=== PATIENT | male | born 1935 | race Hispanic/Latino ===

== ENCOUNTER 2018-10-10 00:50 | Emergency (ER) | payer MEDICARE | END 2018-10-10 01:37 | disposition home or self-care (01) | LOC: EDH 00:50 | DX: I10 Essential (primary) hypertension (principal); E78.5 Hyperlipidemia, unspecified; Z79.899 Other long term (current) drug therapy; Z95.0 Presence of cardiac pacemaker | CPT/HCPCS: 99281 ==

== ENCOUNTER 2018-11-07 06:43 | Day surgery (SDC) | payer MEDICARE ==
[2018-11-05 16:33] LABS: BASOPHILS % (AUTO) 1.1 % (0.0-5.0); EOSINOPHILS % (AUTO) 4.5 % (0.0-8.0); HEMATOCRIT 41.5 % (42-54); MEAN CORPUSCULAR HEMOGLOBIN 30.2 pg (27.0-33.0); MEAN CORPUSCULAR HGB CONC 32.8 g/dL (32.0-36.0); MEAN CORPUSCULAR VOLUME 92.1 fL (79-99); MONOCYTES % (AUTO) 8.7 % (3.0-13.0); NEUTROPHILS % (AUTO) 45.7 % (40.0-77.0); NUCLEATED RED BLOOD CELLS 0.1 % (0.0-0.19); PLATELET COUNT (AUTO) 159 K/uL (130-400); RED BLOOD CELL COUNT(AUTO) 4.51 MIL/uL (4.50-6.20); RED CELL DISTRIBUTION WIDTH 13.1 % (11.0-15.5); WHITE BLOOD COUNT (AUTO) 5.4 K/uL (4.8-10.8)
[2018-11-05 16:37] VITALS: BP 157/63
[2018-11-05 16:41] LABS: CREATININE 1.4 mg/dL (0.5-1.5); POTASSIUM 4.3 mmol/L (3.5-5.1)
[2018-11-07] VITALS (18 sets, daily range): BP systolic 125–153; BP diastolic 52–74
[~2018-11-07] VITALS: Ht 165.1 cm; Wt 68.0 kg
[2018-11-07] MEDS: CEFTRIAXONE SODIUM 1 GM IVP SCH ×2 (06:00→09:00)
[~2018-11-07 06:43] MED LIST: AMLO2.5T3 PO; ASPI-555 PO; METO-409 PO; OMEP20CA10 PO
[2018-11-07] MEDS ORDERED: LACTATED RINGERS 1000ML 1,000 ML IV ONE (07:17)
[2018-11-07] MEDS ORDERED: LIDOCAINE PF 2% 5ML ABBOJECT ONE (08:52)
[2018-11-07] MEDS ORDERED: PROPOFOL 10 MG/ML 20ML VIAL IV ONE (08:53)
[2018-11-07] MEDS ORDERED: FENTANYL CITRATE PF 50 MCG/1 ML 2ML VIAL ONE (08:53)
[2018-11-07] MEDS ORDERED: ROCURONIUM 10MG/1ML SYR 10 MG/ML ML ONE (09:11)
[2018-11-07] MEDS ORDERED: EPHEDRINE SULFATE 50 MG/ML AMPULE ONE (09:11)
[2018-11-07] MEDS ORDERED: NEOSTIGMINE 5MG/5ML SYR IV ONE (09:37)
[2018-11-07] MEDS ORDERED: GLYCOPYRROLATE 1 MG/5 ML SYRINGE ONE (09:37)
[2018-11-07] MEDS ORDERED: MEPERIDINE-PF 25 MG/ML SYG ONE (10:02)
[2018-11-07] MEDS ORDERED: OPIUM/BELLADONNA ALKALOIDS 1 EACH SUPP.RECT RC ONE (10:06)
== END 2018-11-07 12:23 | disposition home or self-care (01) ==
LOC: DAH 06:43
PROVIDERS: ATTEND Urology
DX: N40.1 Benign prostatic hyperplasia with lower urinary tract symptoms (principal); R35.0 Frequency of micturition; R39.15 Urgency of urination; I10 Essential (primary) hypertension; Z79.899 Other long term (current) drug therapy; Z98.890 Other specified postprocedural states; R39.14 Feeling of incomplete bladder emptying; Z82.49 Family history of ischemic heart disease and other diseases of the circulatory system; I47.1 Supraventricular tachycardia; Z95.0 Presence of cardiac pacemaker; E78.5 Hyperlipidemia, unspecified; K21.9 Gastro-esophageal reflux disease without esophagitis; I25.10 Atherosclerotic heart disease of native coronary artery without angina pectoris
CPT/HCPCS: 36415; 52648; 80048; 85025; 88305; 93005; A4218; A4354; A4358; A4510; A4600; J0696; J2001; J2175; J2704; J2710; J3010; J3490 ×2; J7120 ×2

== ENCOUNTER 2018-11-08 09:25 | Emergency (ER) | payer MEDICARE ==
[2018-11-08 10:17] LABS: APPEARANCE,URINE CLOUDY (CLEAR); BILIRUBIN,URINE SMALL (NEGATIVE); GLUCOSE, URINE (UA) 100 mg/dL (NEGATIVE); KETONES,URINE NEGATIVE (NEGATIVE); LEUKOCYTE ESTERASE ,URINE TRACE (NEGATIVE); NITRATE,URINE POSITIVE (NEGATIVE); OCCULT BLOOD,URINE LARGE (NEGATIVE); PH,URINE 5.5 (5.0-8.0); PROTEIN,URINE >=300 (NEGATIVE)
[2018-11-08 10:25] LABS: COLOR,URINE ORANGE (YELLOW)
[2018-11-08 10:28] LABS: AMORPHOUS SEDIMENT,UR Few /LPF (None Seen); BACTERIA,URINE Moderate /HPF (None Seen); SQUAMOUS EPITHELIAL CELL,UR Few /HPF (0-2)
== END 2018-11-08 11:48 | disposition home or self-care (01) ==
LOC: EDH 09:25
DX: T83.098A Other mechanical complication of other urinary catheter, initial encounter (principal); R31.9 Hematuria, unspecified; E78.5 Hyperlipidemia, unspecified; I10 Essential (primary) hypertension; Z98.890 Other specified postprocedural states
CPT/HCPCS: 76857; 81001; 87088

== ENCOUNTER 2019-04-30 05:45 | Day surgery (SDC) | payer MEDICARE ==
[2019-04-28 10:23] LABS: BASOPHILS % (AUTO) 1.2 % (0.0-5.0); EOSINOPHILS % (AUTO) 4.9 % (0.0-8.0); LYMPHOCYTES % (AUTO) 40.7 % (21.0-51.0); MEAN CORPUSCULAR HEMOGLOBIN 30.6 pg (27.0-33.0); MEAN CORPUSCULAR HGB CONC 33.1 g/dL (32.0-36.0); MEAN CORPUSCULAR VOLUME 92.4 fL (79-99); NEUTROPHILS % (AUTO) 43.2 % (40.0-77.0); NUCLEATED RED BLOOD CELLS 0.1 % (0.0-0.19); PLATELET COUNT (AUTO) 162 K/uL (130-400); RED BLOOD CELL COUNT(AUTO) 4.33 MIL/uL (4.50-6.20); RED CELL DISTRIBUTION WIDTH 13.7 % (11.0-15.5); WHITE BLOOD COUNT (AUTO) 4.5 K/uL (4.8-10.8)
[2019-04-28 10:30] LABS: CREATININE 1.5 mg/dL (0.5-1.5); POTASSIUM 4.1 mmol/L (3.5-5.1)
[2019-04-28 10:32] LABS: INR 1.02 (0.85-1.15); PARTIAL THROMBOPLASTIN TIME 31.1 SEC (26.3-35.5); PROTHROMBIN TIME 10.7 SEC (9.6-11.6)
[2019-04-28 10:33] VITALS: BP 160/77
[~2019-04-30] VITALS: Ht 165.1 cm; Wt 65.9 kg
[2019-04-30] VITALS (10 sets, daily range): BP systolic 118–150; BP diastolic 53–70
[~2019-04-30 05:45] MED LIST changes: -AMLO2.5T3 PO; -ASPI-555 PO; +ATOR10TA69 PO; +FURO20TA4 PO
[2019-04-30] MEDS ORDERED: SODIUM CHLORIDE 0.9% 1000ML 1,000 ML IV ONE (06:15)
[2019-04-30] MEDS ORDERED: LIDOCAINE HCL 1% MDV 50ML VIAL ONE (07:15)
[2019-04-30] MEDS ORDERED: BUPIVACAINE/PF 0.25% 30ML VIAL IJ ONE (07:15)
[2019-04-30] MEDS ORDERED: CEFAZOLIN SODIUM 1 GM VIAL ONE (07:15)
--- NOTE | 2019-04-30 07:20 | NUR ---
PERSONAL LINES AGENT PT TAKEN TO PERSONAL LINES AGENT VIA BED FOR PROCEDURE. FAMILY AT BEDSIDE
[2019-04-30] MEDS ORDERED: ACETAMINOPHEN 325 MG TAB PO PRN (08:45)
--- NOTE | 2019-04-30 08:55 | NUR ---
POST OP RECEIVED PT FROM OFFICE CLERK . S/P PACEMAKER CHANGEOUT, DRESSING TO LEFT CHEST DRY AND INTACT, SITE WITH NO BLEEDING OR H EMATOMA. VS STABLE.
--- NOTE | 2019-04-30 12:30 | NUR ---
DC DC INSTRUCTIONS GIVEN TO PATIENT/SPOUSE WITH RX, INSTRUCTED TO F/U WITH DR. MOCTEZUMA, LEFT UPPER CHEST DRESSING DRY AND INTACT,NO BLEEDING OR HEMATOMA TO SITE. VS STABLE. PT DENIED ANY PAIN OR DISCOMFORTS
--- NOTE | 2019-04-30 12:40 | NUR ---
DC PT DC HOME VIA WC, NO DISTRESS NOTED. ACCOMPANIED BY SPOUSE, PT DENIES ANY PAIN OR DISCOMFORTS.
== END 2019-04-30 12:40 | disposition home or self-care (01) ==
LOC: DAH 05:45
PROVIDERS: ATTEND Internal Medicine Cardiovascular Disease
DX: I47.1 Supraventricular tachycardia (principal); I44.4 Left anterior fascicular block; R00.1 Bradycardia, unspecified; I10 Essential (primary) hypertension; E78.5 Hyperlipidemia, unspecified; Z79.82 Long term (current) use of aspirin; Z79.899 Other long term (current) drug therapy; Z79.01 Long term (current) use of anticoagulants; Z98.890 Other specified postprocedural states
CPT/HCPCS: 33228; 36415; 80048; 85025; 85610; 85730; 93005; A4606; C1785; J0690; J3490 ×2; J7030

== ENCOUNTER → 2021-11-01 | Outpatient (CLI) | payer MEDICARE ==
[~2021-11-01] MED LIST changes: -OMEP20CA10 PO; +OMEP20CA12 PO
== END | disposition home or self-care (01) ==
LOC: SHCH 11:05
PROVIDERS: ATTEND Internal Medicine Cardiovascular Disease
DX: M62.81 Muscle weakness (generalized) (principal); I24.8 Other forms of acute ischemic heart disease; R53.83 Other fatigue; I35.1 Nonrheumatic aortic (valve) insufficiency
CPT/HCPCS: 93925

== ENCOUNTER → 2022-09-24 | Outpatient (CLI) | payer MEDICARE ==
[2022-09-24 12:41] LABS: CREATININE 1.6 mg/dL (0.5-1.5); POTASSIUM 4.1 mmol/L (3.5-5.1)
== END | disposition home or self-care (01) ==
LOC: LAB 10:12
PROVIDERS: ATTEND Internal Medicine Cardiovascular Disease
DX: I10 Essential (primary) hypertension (principal)
CPT/HCPCS: 36415; 80048

== ENCOUNTER 2023-09-26 05:56 | Day surgery (SDC) | payer MEDICARE ==
[2023-09-20 12:52] VITALS: BP 141/58; PULSE 50; RESP 18
[2023-09-26] VITALS (11 sets, daily range): BP systolic 122–155; BP diastolic 53–72; PULSE 50–97; RESP 10–16
[~2023-09-26] VITALS: Ht 165.1 cm; Wt 61.2 kg
[~2023-09-26 05:56] MED LIST changes: -ATOR10TA69 PO; -FURO20TA4 PO; +MEMA10TA55 PO; -OMEP20CA12 PO
[2023-09-26] MEDS ORDERED: LIDOCAINE HCL 400MG/20ML VIAL ONE (06:59)
[2023-09-26] MEDS ORDERED: PROPOFOL 10 MG/ML 20ML VIAL IV ONE (06:59)
[2023-09-26] MEDS ORDERED: PHENYLEPHRINE HCL 10 MG/ML 1ML VIAL IV ONE (07:00)
[2023-09-26] MEDS ORDERED: SIMETHICONE 40 MG/0.6 ML ML ONE (07:16)
[2023-09-26] MEDS ORDERED: 0.9%NACL 1000ML 1,000 ML IV ONE (09:01)
== END 2023-09-26 08:40 | disposition home or self-care (01) ==
LOC: DAH 05:56 → ENDO 05:56
PROVIDERS: ATTEND Internal Medicine Gastroenterology
DX: R19.4 Change in bowel habit (principal); D12.2 Benign neoplasm of ascending colon; K57.30 Diverticulosis of large intestine without perforation or abscess without bleeding; D64.9 Anemia, unspecified; E78.5 Hyperlipidemia, unspecified; I10 Essential (primary) hypertension; Z95.0 Presence of cardiac pacemaker; Z82.49 Family history of ischemic heart disease and other diseases of the circulatory system; Z87.891 Personal history of nicotine dependence; Z79.899 Other long term (current) drug therapy; Z98.890 Other specified postprocedural states
CPT/HCPCS: 45380; 45385; J3490; J7030 ×2; J2704; J2371; A4620; A4215 ×2; A4223; A7002; A4222; A4221; A4663; A4606